=== PATIENT | male | born 1985 | race African-American/Black ===

== ENCOUNTER 2016-07-08 20:54 | Emergency (ER) | payer OTHER ==
[2016-07-08] MEDS ORDERED: NO HOME MEDICATION XX (21:05)
[2016-07-08] MEDS ORDERED: CYCLOBENZAPRINE10 M1 PO (22:19)
[2016-07-08] MEDS ORDERED: NORCO 5/3251 TAB PO (22:19)
[2016-11-22] MEDS ORDERED: VIBRAMYCIN100 M1 PO (15:10)
== END 2016-07-08 22:30 ==
LOC: EDMED 20:54
DX: M54.5 Low back pain (principal); G89.29 Other chronic pain
CPT/HCPCS: J1885

== ENCOUNTER 2016-07-10 19:04 | Emergency (ER) | payer SELFPAY ==
[~2016-07-10 19:04] MED LIST: CYCLOBENZAPRINE10 M1 PO; NO HOME MEDICATION XX; NORCO 5/3251 TAB PO
[2016-07-10] MEDS ORDERED: ALBUTEROL0.63 MG/1 INH (20:49)
[2016-07-10] MEDS ORDERED: QVAR8.7 G1 INH (20:49)
[2016-07-10] MEDS ORDERED: TRAMADOL HCL50 M2 PO (21:09)
[2016-07-10] MEDS ORDERED: PREDNISONE10 M1 PO (21:09)
[2016-11-22] MEDS ORDERED: VIBRAMYCIN100 M1 PO (15:10)
== END 2016-07-10 21:19 ==
LOC: EDMED 19:04
DX: G89.29 Other chronic pain (principal); M54.5 Low back pain; F17.210 Nicotine dependence, cigarettes, uncomplicated

== ENCOUNTER 2016-07-25 17:10 | Emergency (ER) | payer OTHER ==
[~2016-07-25 17:10] MED LIST changes: +ALBUTEROL0.63 MG/1 INH; +PREDNISONE10 M1 PO; +QVAR8.7 G1 INH; +TRAMADOL HCL50 M2 PO
[2016-07-25] MEDS ORDERED: OXYCODONE HCL E10 MG PO (17:43)
[2016-07-25] MEDS ORDERED: CYCLOBENZAPRINE5 M1 PO ×2 (17:43→18:29)
[2016-07-25] MEDS ORDERED: HYDROCODONE-IB1 EAC3 PO (18:29)
[2016-07-25] MEDS ORDERED: PREDNISONE20 M1 PO (18:29)
[2016-11-22] MEDS ORDERED: VIBRAMYCIN100 M1 PO (15:10)
== END 2016-07-25 18:51 ==
LOC: EDMED 17:10
DX: M54.5 Low back pain (principal); G89.29 Other chronic pain; Z88.6 Allergy status to analgesic agent; F17.200 Nicotine dependence, unspecified, uncomplicated